=== PATIENT | male | born 1940 | race Caucasian/White ===

== ENCOUNTER 2016-09-14 16:16 | Emergency (ER) | payer MEDICARE ==
[~2016-09-14] VITALS: Ht 165.1 cm; Wt 53.0 kg
[~2016-09-14 16:16] MED LIST: ASPI325T PO; DONE10TA14 PO; LORTA5 PO; MELA5CAP2 PO; METO50TA PO; PENVK500 PO
[2016-09-14 16:20] VITALS: BP 112/77; PULSE 86; RESP 16; TEMP 98.5; O2SAT 95
== END 2016-09-14 18:00 | disposition left against medical advice (07) ==
LOC: PHED 16:16
DX: R68.89 Other general symptoms and signs (principal)
CPT/HCPCS: 99281